=== PATIENT | male | born 1985 | race Caucasian/White ===

== ENCOUNTER 2019-12-07 17:07 | Emergency (ER) | payer OTHER, SELFPAY ==
--- NOTE | 2019-12-07 17:15 | ED.GENADULT ---
HPI - General Adult General Chief complaint: Wound/Laceration Stated complaint: tick on side Time Seen by Provider: 12/07/19 17:16 Source: patient and RN notes reviewed Limitations: no limitations History of Present Illness HPI narrative: This is a 34 years old male presents to the office for an evaluation for tick bite. He noticed it prior to arrival after he showered. He must have gotten it last night or early this morning. TD is up to date. Related Data Allergies Allergy/AdvReac Type Severity Reaction Status Date / Time No Known Allergies Allergy Unverified 01/04/18 10:16 Review of Systems Review of Systems: Narrative: CONSTITUTIONAL: Denies feeling ill SKIN: Reports tick bite to left side of his chest near his breast. MUSCULOSKELETAL: Denies joints pain NEUROLOGIC: Denies lightheaded PMFSH Social History Social History Smoking status: Never smoker Alcohol intake: current Comments At time of signature, I agree with nursing past medical, surgical, social and family history. There is no relevant family history pertinent to the presenting complaint. Exam Narrative: Exam Narrative: GENERAL: This is a well-nourished, well-developed patient, in no apparent distress. SKIN: left mid axillary side of chest noted adult size engorged tick; I cleaned the affect area with betadine swap, then I used splinter and alligator forcept along with 18g needle to remove it. I completed removed the tick, dressed the wound with neosporin and bandage. wound care instruction. NEURO: awake, alert, and oriented to person, place and time. There were no obvious focal neurologic abnormalities. Steady gait [place] Coma Scale Eye Opening: Spontaneous 4 [place]bi Coma Scale Motor: Obeys Commands 6 [place] Coma Scale Verbal: Oriented 5 Course Vital Signs Vital signs: Vital Signs Temperature 97.2 F L 12/07/19 17:18 Pulse Rate 64 12/07/19 17:18 Respiratory Rate 16 12/07/19 17:18 Blood Pressure 152/81 H 12/07/19 17:18 Pulse Oximetry 100 12/07/19 17:18 Temperature 97.2 F L 12/07/19 17:18 Pulse Rate 64 12/07/19 17:18 Respiratory Rate 16 12/07/19 17:18 Blood Pressure 152/81 H 12/07/19 17:18 Pulse Oximetry 100 12/07/19 17:18 Medical Decision Making MDM Narrative Medical decision making narrative: Patient is Urgent/Emergent. BP elevated due to current condition w/o HTN in PMH (Measure Met). Discharge instructions reviewed with patient, as well as provided in writing per nursing staff. The instructions also include specific and strict return/GO TO THE ER as well as f/u information. All questions have been answered, and the patient deny any further questions with discharge and discharge plan. Differential Diagnosis Differential Diagnosis: tick removal, wound care Vital Signs Vital Signs: Vital Signs Temperature 97.2 F L 12/07/19 17:18 Pulse Rate 64 12/07/19 17:18 Respiratory Rate 16 12/07/19 17:18 Blood Pressure 152/81 H 12/07/19 17:18 Pulse Oximetry 100 12/07/19 17:18 Temperature 97.2 F L 12/07/19 17:18 Pulse Rate 64 12/07/19 17:18 Respiratory Rate 16 12/07/19 17:18 Blood Pressure 152/81 H 12/07/19 17:18 Pulse Oximetry 100 12/07/19 17:18 Critical Care Time Critical Care Time Critical Care Time: No Discharge Plan Discharge Clinical Impression: Tick bite Qualifiers: Encounter type: initial encounter Qualified Code(s): W57.XXXA - Bitten or stung by nonvenomous insect and other nonvenomous arthropods, initial encounter Patient Disposition: Home, Self-Care Condition: Stable Instructions: Tick Bite (ED) Additional Instructions: Keep your affected area clean and dry, watch for red target sign if you see the red target sign; called your doctor immediately. Prescriptions: New doxycycline hyclate 100 mg tablet 200 mg PO ONCE Qty: 2 RF: 0 Follow-up/Referrals: Jody,Carroll Garcia,
[2019-12-07 17:18] VITALS: BP 152/81; PULSE 64; RESP 16; TEMP 36.2; O2SAT 100
== END 2019-12-07 17:47 | disposition home or self-care (01) ==
PROVIDERS: Emergency Provider Nurse Practitioner; PCP Family Medicine Sports Medicine
DX: S20.362A Insect bite (nonvenomous) of left front wall of thorax, initial encounter (principal); W57.XXXA Bitten or stung by nonvenomous insect and other nonvenomous arthropods, initial encounter
CPT/HCPCS: 99213; G0463

== ENCOUNTER 2021-08-23 15:31 | Outpatient (CLI) | payer OTHER, SELFPAY ==
--- NOTE | ~2021-08-23 | MR_ITS ---
EXAMINATION: MR foot RT wo con DATE: 08/23/2021 16:37 INDICATION: Benign neoplasm of bone and articular cartilage. Right foot and ankle pain. TECHNIQUE: Magnetic resonance imaging (MRI) of the right foot was performed without intravenous contr ast. Sequences included sagittal T1-weighted FSE and STIR FSE, long-axis PD-weighted FS FSE and PD-we ighted FSE, and short-axis PD-weighted FS FSE and T1-weighted FSE. COMPARISON: Right ankle MRI 03/22/2016, radiographs 07/27/2016, 03/16/2016 FINDINGS: Bone alignment is normal. No fracture. There is a 4 mm osteochondral lesion of lateral daniel r dome. There are tiny osteophytes of the ankle joint, subtalar joint, and some of the midfoot joints . The medial and anterior ankle tendons are normal. There is mild peroneus longus tendinopathy with l ongitudinal split tear. There is a longitudinal split tear of peroneus brevis tendon. There is Achill es tendinopathy. There are changes of Achilles tendon repair with suture anchor in calcaneus. There a re changes of prior sprain of anterior talofibular ligament characterized by increased signal intensi ty in surface irregularity. There are changes of partial tear of calcaneofibular ligament. Posterior talofibular ligament is intact. There are changes of prior sprain of anterior tibiofibular ligament c haracterized increased signal intensity. Posterior tibiofibular ligament is intact. There are changes of prior sprains of superficial and deep components of the deltoid ligament characterized by thicken ing. Central band of plantar fascia demonstrates thickening and increased signal intensity away from the proximal attachment, consistent with fibromatosis. IMPRESSION: 1. 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 2. Changes of Achilles tendon repair. 3. Changes of medial and lateral ankle sprains. 4. Longitudinal split tears of peroneus longus and peroneus brevis tendons. 5. Plantar fibromatosis. Reviewed, dictated and finalized at location A. [place] [employer]
== END 2021-08-23 15:32 | disposition home or self-care (01) ==
PROVIDERS: PCP Family Medicine Sports Medicine; Visit Provider Podiatrist Foot & Ankle Surgery
DX: D16.9 Benign neoplasm of bone and articular cartilage, unspecified (principal); M19.071 Primary osteoarthritis, right ankle and foot; Z98.890 Other specified postprocedural states; S93.491A Sprain of other ligament of right ankle, initial encounter; S96.811A Strain of other specified muscles and tendons at ankle and foot level, right foot, initial encounter; M72.2 Plantar fascial fibromatosis
CPT/HCPCS: 73718

== ENCOUNTER 2022-07-16 09:17 | Emergency (ER) | payer OTHER, SELFPAY ==
[2022-07-16 09:34] VITALS: BP 149/92; PULSE 67; RESP 16; TEMP 36.4; O2SAT 100
--- NOTE | 2022-07-16 09:51 | ED.URI ---
HPI - URI/Sore Throat General Chief Complaint: Upper Respiratory Infection Stated Complaint: SORE THROAT Time Seen by Provider: 07/16/22 09:51 Source: patient Mode of arrival: ambulatory Limitations: no limitations History of Present Illness HPI Narrative: Kobe is a 37-year-old male patient presenting to the clinic today with complaints of sore throat x2 days. He does report that he thinks he had flu approximately 1-2 weeks ago. States his symptoms did improve however he developed to sore throat 2 days ago and has had exposure to a co-worker who tested positive for strep MD elicited complaint: sore throat and nasal congestion Related Data Allergies Allergy/AdvReac Type Severity Reaction Status Date / Time No Known Allergies Allergy Verified 07/16/22 09:34 Review of Systems Review of Systems: Pertinent positives per HPI. Patient denies any fever, chills, rash, headache, visual changes, dizziness, shortness of breath, chest pain, palpitations, nausea, vomiting, diarrhea, constipation, abdominal pain, or any urinary issues. [facility] Social History Social History Smoking status: Never smoker Alcohol intake: current Comments At the time of my signature, I reviewed and agree with the nursing past medical, surgical, social, and family history. There is no relevant family history pertinent to the patient complaint. Exam Narrative: General: Well-developed, well nourished, in no apparent distress Head: Normocephalic, atraumatic Eyes: Pupils equally round and reactive to light bilaterally, EOM intact, sclera and conjunctive clear, no discharge, lids normal Ears: TMs intact and clear, ear canals clear, no drainage, grossly hearing normal. Nose: Nares patent, clear nasal discharge, no inflammation, no sinus tenderness. Mouth: Oral pharynx without lesions or masses, good dentition, MMM. Postnasal drip oropharynx red Neck: Supple, trachea midline, no enlargement of anterior or posterior cervical nodes, no thyroid masses or goiter palpable. Cardio: Regular rate and rhythm, s1 and s2 normal, no murmur appreciated. Resp: Clear to auscultation bilaterally, no rhonchi, rales, wheezing or rubs Course Course Emergency Course: Portions of this record may have been created with voice recognition software. Level of Care: Express Care Visit Vital Signs Vital signs: Vital Signs Temperature 36.4 C L 07/16/22 09:34 Pulse Rate 67 07/16/22 09:34 Respiratory Rate 16 07/16/22 09:34 Blood Pressure 149/92 H 07/16/22 09:34 Pulse Oximetry 100 07/16/22 09:34 Temperature 36.4 C L 07/16/22 09:34 Pulse Rate 67 07/16/22 09:34 Respiratory Rate 16 07/16/22 09:34 Blood Pressure 149/92 H 07/16/22 09:34 Pulse Oximetry 100 07/16/22 09:34 Vital signs reviewed MDM - URI/Sore Throat MDM Narrative Medical decision making narrative: At the time of visit patient is resting comfortably on the exam table. Strep screen was obtained and was negative in the clinic today. I suspect patient has URI pharyngitis. Prescription for prednisone was sent to pharmacy. Supportive measures were discussed with the patient he voiced understanding discharge instructions and agrees to treatment plan. Differential Diagnosis Differential diagnosis: Likely upper respiratory infection, otitis media, sinusitis, viral infection, bronchitis, influenza, pharyngitis and other (COVID) Lab Data Labs: Strep Screen Presumptive Negative *(Reference Range: Negative)* Discharge Plan Discharge Clinical Impression: Upper respiratory infection Qualifiers: URI type: unspecified URI Qualified Code(s): J06.9 - Acute upper respiratory infection, unspecified Pharyngitis Qualifiers: Pharyngitis/tonsillitis etiology: unspecified etiology Qualified Code(s): J02.9 - Acute pharyngitis, unspecified Patient Disposition: Home, Se
== END 2022-07-16 10:03 | disposition home or self-care (01) ==
PROVIDERS: Emergency Provider Nurse Practitioner Family; PCP Nurse Practitioner
DX: J06.9 Acute upper respiratory infection, unspecified (principal); J02.9 Acute pharyngitis, unspecified
CPT/HCPCS: 87081; 87880; 99213; G0463

== ENCOUNTER 2022-09-03 11:50 | Emergency (ER) | payer OTHER, SELFPAY ==
[2022-09-03 12:02] VITALS: BP 137/89; PULSE 53; RESP 18; TEMP 36.4; O2SAT 100
--- NOTE | 2022-09-03 12:02 | ED.BACK ---
HPI - Back Pain/Injury General Chief Complaint: Back Pain/Injury Stated Complaint: back pain Time Seen by Provider: 09/03/22 12:10 Source: patient Mode of arrival: ambulatory Limitations: no limitations History of Present Illness HPI Narrative: Kobe is a 37-year-old male patient presenting to clinic today with complaints of left posterior hip/SI joint pain with some radiation of pain in to his left leg. He reports that he did some lifting yesterday in yd work and feels as though he injured his SI joint. At a states he has had this problem in the past but nothing as severe. He denies any saddle anesthesia or loss of bowel or bladder. Rates his pain currently a 4/10. States the pain is a dull ache. Related Data Allergies Allergy/AdvReac Type Severity Reaction Status Date / Time No Known Allergies Allergy Verified 09/03/22 12:03 [facility] Social History Social History Smoking status: Never smoker Alcohol intake: current Comments At the time of my signature, I reviewed and agree with the nursing past medical, surgical, social, and family history. There is no relevant family history pertinent to the patient complaint. Exam Narrative: General: Well-developed, well nourished, in no apparent distress Head: Normocephalic, atraumatic. Cardio: Regular rate and rhythm, s1 and s2 normal, no murmur appreciated. Resp: Clear to auscultation bilaterally, no rhonchi, rales, wheezing or rubs. Musculoskeletal: No deformity, non-tender to palpation, grossly normal range of motion, muscle strength strong and equal, peripheral pulse strong, no edema, no cyanosis, normal gait and station Course Course Emergency Course: Portions of this record may have been created with voice recognition software. Level of Care: Express Care Visit Vital Signs Vital signs: Vital signs reviewed MDM - Back Pain/Injury MDM Narrative Medical decision making narrative: At the time of visit patient is resting comfortably on the exam table. I suspect patient has SI joint dysfunction with sciatica. Toradol 60 mg IM given in the clinic for pain and prescription for prednisone Flexeril sent to the pharmacy and supportive measures were discussed with the patient and he voiced understanding discharge instructions and agrees to treatment plan. Sedation precautions were reviewed with the patient Differential Diagnosis Differential diagnosis: Likely lumbar radiculopathy, sciatica, strain of lumbar region and other (SI joint dysfunction) Discharge Plan Discharge Clinical Impression: Sacroiliac joint dysfunction of left side, Sciatica of left side Patient Disposition: Home, Self-Care Condition: Stable Instructions: Antibiotic Form, Sciatica (ED), Hip Pain (ED) Additional Instructions: Toradol 60 mg IM given in the clinic today Take any prescription medication only as prescribed- prednisone and Flexeril Be mindful of sedation precautions given to you if taking a muscle relaxer. May use heat or ice to the affected area Consider massage or chiropractor adjustment if this was discussed with provider May use blue emu, lidocaine patches, or asper cream to affected area- do not apply heat or ice directly over cream- can cause burn. Complete appropriate sciatica stretching exercises. Follow up with your PCP in 3-5 days if symptom persist. Prescriptions: New cyclobenzaprine 10 mg tablet 10 mg PO Q8H PRN (Reason: muscle spasm) 7 Days Qty: 21 0RF prednisone 20 mg tablet 40 mg PO DAILY 5 Days Qty: 10 0RF Follow-up/Referrals: UNKNOWN,DOCTOR [Primary Care Provider] - Time of Disposition: 12:17 Quality NIHSS Nursing Documentation ED NIHSS nursing documentation: reviewed/agree
[2022-09-03 12:04] VITALS: BP 137/89; PULSE 53; RESP 18; TEMP 36.4; O2SAT 100
[2022-09-03] MEDS: KETOROLAC (*BKC) 60 MG/2 ML VIAL IM (12:21)
[2022-09-03 12:36] VITALS: BP 136/87; PULSE 97; RESP 18; TEMP 36.8; O2SAT 98
== END 2022-09-03 12:36 | disposition home or self-care (01) ==
PROVIDERS: Emergency Provider Nurse Practitioner Family
DX: M53.3 Sacrococcygeal disorders, not elsewhere classified (principal); M54.32 Sciatica, left side
CPT/HCPCS: 96372; 99213; G0463; J1885

== ENCOUNTER 2023-05-02 01:19 | Day surgery (SDC) | payer OTHER, SELFPAY ==
[2023-04-25 14:10] VITALS: BMI 27.7
--- NOTE | 2023-04-25 14:14 | PC.NURSE ---
Report to the Outpatient Waiting Room, entrance under the green pavilion located off [facility], at time 1130 on date 05/02/23. Planned Procedure Time: 1330. Time changes happen often and if your time is changed the preop area will call you the afternoon before. - You and your visitor will be asked to self-screen and do not enter if you have any COVID symptoms. - A mask is optional within the hospital at this time. Patients may have clear liquids (water, carbonated beverages, clear teas, apple juice) until 3 hours prior to surgery with a maximum of 20 ounces. - No food from midnight until time of surgery Take the following medications with a SIP of water the morning of surgery: N/A DO NOT STOP ANY OF YOUR OTHER PRESCRIPTION MEDICATIONS PRIOR TO SURGERY ?EXCEPT THE FOLLOWING Medications to discontinue per physician: N/A Date to take last dose: N/A Please no make-up, nail mongolian, hairspray, perfume, deodorant, or body powder the day of surgery. No jewelry (including any body piercings) or valuables the day of surgery, leave them at home. Please take a shower or bath the night before, or the morning of, surgery with an antibacterial soap. Wear comfortable, loose fitting clothing. - Jewelry must be removed prior to entering the operating room. Rings and piercings that are not removed may be cut off. - The hospital will not accept responsibility for valuables. - Please leave all valuables, including medications, at home the day of surgery. If you are going home after surgery, a licensed driver/merchandiser must drive you home. - NO public transportation without another adult if you receive anesthesia. - We recommend that an adult stay with you for 24 hours following discharge. - We also recommend that you do not drive, make important decision, drink alcoholic beverages, or take any drugs that were not prescribed by your health care provider for at least 24 hours after your discharge time. Follow any additional instructions given to you from your surgeon. If you or anyone in your household have experienced Covid symptoms in the past week, please notify your surgeon or the nurse liaison at the phone number below for possible testing. Telephone instructions given to PT - RAMONA BUSH and asked if any additional questions and then verbalized understanding. Patient advised to call surgeon office or pre surgery nurse liaison [phone] if any additional questions.
[2023-05-02] VITALS (10 sets, daily range): BP systolic 130–150; BP diastolic 69–91; PULSE 48–71; RESP 11–16; TEMP 36.4–36.6; O2SAT 94–100
--- NOTE | 2023-05-02 09:09 | WPDHPUPDATE1 ---
History and Physical Update Update Date/Time: 05/02/23 09:09 History and Physical has been reviewed, including an updated exam of the patient. There are NO changes in the patient's condition. Risks, benefits, and alternatives have been discussed and questions answered. Patient agrees to proceed with procedure.
[2023-05-02] MEDS: KETOROLAC 15 MG/ML VIAL (*BKC) IV PUSH (12:15)
[2023-05-02] MEDS: ACETAMINOPHEN 500 MG TABLET 1000 MG PO (12:15)
[2023-05-02] MEDS: LACTATED RINGERS 1,000 ML 30 ML IV CONT ×2 (12:31→14:25)
--- NOTE | 2023-05-02 12:43 | P.PNAN_ITS ---
Anes - Initial Pre Proc Eval Procedure: Operation Date: 05/02/23 13:30 Proposed Procedures p Open Umbilical Hernia Repair with Mesh - Delma Villatoro MD Date/Time: 05/02/23 12:43 Surgeon: Delma Villatoro MD Pre Op Diagnosis: Umbilical Hernia Patient Data Age: 37 Gender: M Height: 1.85 m Weight: 93.7 kg Last Vital Signs Temp 98 F 05/02/23 12:26 Pulse 57 L 05/02/23 12:26 Resp 14 05/02/23 12:26 BP 150/70 H 05/02/23 12:26 Pulse Ox 99 05/02/23 12:26 O2 Del Method Room Air 05/02/23 12:26 Allergies Allergy/AdvReac Type Severity Reaction Status Date / Time No Known Allergies Allergy Verified 05/02/23 12:33 Home Medications Medication Instructions Recorded Confirmed Type No Home Medications 04/25/23 04/25/23 History Patient hx anesthesia problems: none Family hx anesthesia problems: none Results Review: All pre-operative results and documents have been reviewed as part of the pre- operative evaluation. [facility] Surgical History Surgical History (Updated 04/25/23 @ 09:11 by Lynn Yarbrough MA) Hx of Achilles tendon repair Family History Family History (Updated 04/25/23 @ 09:12 by Lynn Yarbrough MA) Other Heart disease Social History Social History Smoking status: Never smoker Alcohol intake: current Alcohol use details: RARE - 2/MONTH Substance use: never Substance use type: does not use Living arrangements: alone Spiritual care concerns: No Anes - Eval Final PreProcedure Day of Procedure 05/02/23 12:43 Patient weight: normal Heart: regular rate and rhythm Lungs: clear to auscultation Airway: Mallampati scale class II Neurological: alert and oriented Last oral intake: >/= 8 hours ASA classification: II Emergent: no Anesthetic plan: proceed Anesthesia type and monitoring: general LMA and standard monitoring Results Review: All pre-operative results and documents have been reviewed as part of the pre- operative evaluation. Informed Consent: The patient's anesthetic plan and its attendant risks and benefits were dis cussed with the patient/family/POA. Questions were solicited and answers provided to the satisfaction of the patient/family/POA.
[2023-05-02] MEDS: ceFAZolin 2 GM/D5W 50 ML 2 GM/50 ML BAG IVPB (13:22)
[2023-05-02] MEDS: BUPIVACAINE/EPINEPHRINE 0.5% 50 ML VIAL 30 ML INFILTRATE (13:22)
--- NOTE | 2023-05-02 14:05 | W.PM.PROC2 ---
Procedure Note - Detailed Date of Procedure 05/02/23 Pre-op Diagnosis Umbilical Hernia measuring total of 3 cm Post-op Diagnosis Same Procedure Performed repair of incarcerated umbilical hernia measuring 3 cm with mesh Surgeon Delma Villatoro MD Anesthesia General Indications 37 y/o M c incarcerated umbilical hernia Findings incarcerated umbilical hernia c preperitoneal fat, 2 separate defects measuring approximately 1 cm each with a 1 cm bridge in between making total defect approximately 3 cm Description of Procedure The patient was taken to the operating room placed in the supine position. After adequate induction of general anesthesia, the patient was prepped and draped in the normal sterile fashion. A time-out was then done to verify the patient's identity, as well as the procedure being performed. I began by localizing the area around the umbilicus. I then made a curvilinear incision in the infraumbilical fold. This was taken down to level fascia. I then was able to bluntly dissect around the umbilicus. I then carefully dissected the umbilicus off the underlying fascia. I then noted two small defects with incarcerated preperitoneal fat. I was able to mobilize the incarcerated tissue and reduce it back into the abdominal cavity. This left 2 separate 1 cm defects with a 1 cm bridge in between. Given this finding, I opened the bridge in between to make it 1 defect of approximately 3 cm. I then placed a 4.6 cm round piece of ventralex mesh in the underlay position. This was noted to have good, wide local coverage of the defect. I then closed this defect primarily with interrupted 0 Ethibond suture over the underlay mesh repair. I then reapproximated the umbilicus to the fascia with a 3 0 Vicryl U-stitch. The subcutaneous tissue was then closed with 3 0 Vicryl suture. The skin was closed with 4 0 Monocryl subcuticular suture. Dermabond was then placed on the wound. The patient tolerated the procedure well was extubated in the operating room postop. He will be transferred to the recovery room in stable condition. Implants 4.6 cm ventralex mesh in underlay position Estimated Blood Loss 5 Drains No Packing No Pathology None sent Complications No immediate complications Condition Stable Disposition PACU [facility] Billing Surgery - Charge Forward: Surgery Billing
[2023-05-02] MEDS: fentaNYL CITRATE INJ (*CRX) 100 MCG/2 ML VIAL 25 MCG IV PUSH ×4 (14:35→15:10)
[2023-05-02] MEDS: oxyCODONE HCL (*CRX) 5 MG TAB IR PO (15:46)
== END 2023-05-02 16:35 | disposition home or self-care (01) ==
PROVIDERS: PCP Nurse Practitioner; Visit Provider Surgery
PROC: (CPT 49594; principal; 2023-05-02 13:30)
DX: K42.0 Umbilical hernia with obstruction, without gangrene (principal)
CPT/HCPCS: 49594; A9270; C1781; J0690; J1100; J1885; J2250; J2405; J2704; J3010; J7120

== ENCOUNTER 2024-08-21 18:11 | Emergency (ER) | payer OTHER, SELFPAY ==
--- NOTE | 2024-08-21 18:12 | ED_ITS ---
HPI - Extremity Injury (Upper) General Chief Complaint: Extremity Injury, Upper Stated Complaint: LT Arm Pain / anxiety Time Seen by Provider: 08/21/24 18:11 Source: patient Mode of arrival: ambulatory Limitations: no limitations History of Present Illness HPI narrative: Patient is a 39-year-old male that presents with muscular chest pain and anxiety. 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 Once he moved back here from [place] he saw a different integrated logistics support manager and was told that was incorrect. Patient has not had cardiac issues since. Reports chest pain is a 1/10 and is intermittent and present mostly on palpation. Patient states Sunday night he started having a sore throat, nasal congestion and headache. Sunday he had a fever. All symptoms have resolved since Sunday. Patient also reports a few weeks ago he irritated left elbow tendon working out and took 2 weeks off of chest and arm days. Reports this past week he went back to doing chest and arms. Now reports reproducible left mid sternal chest wall pain along with pain in left shoulder and left elbow. Patient reports left elbow tendon is very tender on palpation like it was 2 weeks ago. Patient has not had any shortness of breath or radiating pain. Patient still able move shoulder and elbow completely. Patient does not have any medication for anxiety and does not see a psychiatrist. Related Data Allergies Allergy/AdvReac Type Severity Reaction Status Date / Time No Known Allergies Allergy Verified 08/21/24 18:19 Review of Systems Review of Systems: All systems reviewed & are unremarkable except as noted in HPI and below Constitutional: Constitutional: Denies body ache(s), Denies chills, Denies fatigue, Denies fever(s), Denies headache(s), Denies malaise and Denies weakness Eyes: Eyes: Denies blurry vision, Denies irritation and Denies loss of vision ENT: Denies otalgia, Denies headache(s), Denies nasal discharge, Denies sinus pain and Denies sore throat Cardiovascular: Cardiovascular: Reports chest pain, Denies irregular heart rhythm and Denies dyspnea Respiratory: Respiratory: Denies dyspnea Gastrointestinal: Gastrointestinal: Denies abdominal pain, Denies melena, Denies hematochezia, Denies diarrhea, Denies nausea and Denies vomiting Musculoskeletal: Musculoskeletal: Denies back pain, Denies myalgias and Reports arthralgias Integumentary/Breasts: Skin/Breast: Denies pruritus and Denies rash Neurologic: Denies headache(s), Denies loss of vision and Denies weakness Psychiatric: Psychiatric: Reports no additional psychiatric complaints Endocrine: Endocrine: Denies fatigue PMFSH Surgical History Surgical History History of hernia repair repair of incarcerated umbilical hernia measuring 3 cm with mesh on 05/02/23 PDC Hx of Achilles tendon repair Family History Family History Other Heart disease Social History Social History Smoking status: Never smoker Alcohol intake: current Alcohol use details: RARE - 2/MONTH Substance use: never Substance use type: does not use Living arrangements: alone Spiritual care concerns: No Comments At time of signature, agree with nursing past medical, surgical, social and family history. There is no relevant family history pertinent to the presenting complaint. Exam Const: General: cooperative, healthy appearing, comfortable, no acute distress and well nourished Nutritional Appearance: well nourished Orientation/consciousness: patient oriented x3 Limitations: no limitations HENMT: Head: normal to inspection, normocephalic and atraumatic Ears: hearing grossly normal bilaterally and external ears normal Face/Nose/Sinus: Normal external nose present, normal facial exam and face symmetric Face and sinus: normal facial exam and face symmetric Mouth: Yes lip normal Eyes: General: appearance normal, both eyes and all related structures Alignment and Position: alignment normal and position normal Periorbital: periorbital findings normal Eyelids: eyelids normal Pupils: Equal, round and reactive pupils present EOM: EOMs intact bilaterally Neck: Neck: normal visual inspection, full ROM and supple Chest: Chest palpation & inspection: normal inspection of the chest Resp: Effort & Inspection: normal respiratory effort and able to speak in complete sentences Auscultation: clear to auscultation bilaterally, no crackles, no rales, no rhonchi and no wheezes Cardio: Rate: bradycardic Rhythm: regular rhythm Heart sounds: S1 normal heart sound present and S2 normal heart sound present GI: Inspection: normal to inspection Skin: General skin exam: normal color and no rashes or lesions noted Neuro: General: patient oriented x3 and moves all extremities Cranial nerves: Yes Equal, round and reactive pupils present Cognition (Neuro): normal cognition Speech: normal speech Gait exam (Neuro): Normal gait present Motor exam (neuro): Normal motor muscle tone present throughout and Motor abnormalities not present Sensory Exam: normal sensation Extrem: General: normal to inspection, full ROM and no edema Left upper extremity: shoulder/upper arm inspection abnormal, axillary nerve sensory function normal and normal ROM; no tenderness and no swelling and elbow/forearm normal to inspection, tenderness of the medial epicondyle, normal ROM and distal pulses intact; no swelling Psych: Appearance: grossly normal and well kempt Mental Status: mental status grossly normal Speech and movement: Normal speech and movement present Affect: Anxious affect present Attitude: cooperative Thought process: Normal thought process present Thought content: Yes Normal thought content present Insight: Good insight present (Psych) Judgement: Good judgement present (Psych) Course Course Emergency Course: Patient is aware of diagnosis, understands and agrees to treatment plan. Anticipatory guidance given. Patient agrees to follow-up as directed and is aware of reasons to seek care at the emergency department. Portions of this record may have been created with voice recognition software Level of Care: Express Care Visit Vital Signs Vital signs: Reviewed MDM - Extremity Injury (Upper) MDM Narrative Medical decision making narrative: Discussed EKG findings with patient. Given Cardiology follow-up. Discussed transfer to emergency department for further workup and evaluation, patient states he does not want to go at this time. Patient states he will follow-up with PCP and Cardiology. Patient also states if he goes home and his anxiety is overwhelming or he has any changes in chest pain he will go straight to the ER. Patient declined Atarax for anxiety. Patient had not taken any tylenol or ibuprofen for pain. States last night he was able to relax and reduce anxiety which also reduced the pain, and was able to sleep. Does report the more he thinks about the pain and if it has to do with his heart the more the pain is present. Pt well hydrated appearing, in no respiratory distress, hemodynamically stable. Recommend supportive care. The patient is stable at time of discharge the clinical impression was discussed and the patient was given the opportunity to ask questions, which were addressed as completely as possible given the information available at present. Anticipatory guidance and return to care precautions were discussed and the importance of primary care follow-up was stressed and encouraged. The patient voiced understanding of the plan, indications to return, and the need for follow-up. Exam findings show no acute concerns or changes Patient is appropriate for outpatient treatment and follow-up. Differential Diagnosis Differential diagnosis: Likely other (Muscle strain, tendinitis. Less likely mi. Anxiety, panic attack) Medical Records Attestation: I reviewed the patient's medical records. ECG Data EKG #1: ECG completion date: 08/21/24 ECG completion time: 18:34 Prior ECG tracings: not available for review Interpretation: EKG: VR[55], ND int[169], QRS dur:[151], QT/QTc: [459/447], PRT axes: [58 72 36], No ST elevation or depression. J-point changes in lead 3 EKG Interpretation: bradycardia, no ST changes and RBBB Discharge Plan Discharge Clinical Impression: Left elbow tendinitis, Anxiety Chest wall muscle strain Qualifiers: Encounter type: initial encounter Qualified Code(s): S29.011A - Strain of muscle and tendon of front wall of thorax, initial encounter Patient Disposition: Home, Self-Care Condition: Stable Instructions: Muscle Strain (ED) Additional Instructions: Avoid activities that cause pain until the pain subsides. Ice to the area 20-30 minutes 4-6 times a day For pain, you may take: Tylenol 650-1000mg by mouth every 4-6 hours. Do not exceed 4000mg in 24 hours. Advil (Ibuprofen) 600 mg by mouth every 6 hours. Do not exceed 2400mg in 24 hours. 8 AM: Tylenol 11 AM: Ibuprofen 2 PM: Tylenol 5 PM: Ibuprofen 8 PM: Tylenol 11 PM: Ibuprofen 2 AM: Tylenol 5 AM: Ibuprofen Use muscle relaxers as needed. They may make you sleepy so do not drive while taking them. Follow up with your primary care provider if the condition is not improving within 1 week. If the condition worsens with numbness, tingling, decrease sensation with weakness seek treatment in the emergency room immediately. Your blood pressure was elevated above 120/80 today at Urgent Care. This puts you above the threshold for follow up visit with a primary care provider. High blood pressure does not usually cause any symptoms, however it may lead to kidney failure, stroke, heart disease just to name a few if untreated . Many people are anxious when seeing a provider or nurse. As a result, you are not diagnosed with hypertension at this time unless your blood pressure is persistently high at two office visits at least one week apart. Some things that can help lower blood pressure are lifestyle modifications, such as light exercise, decreased salt in diet, and weight loss. It is important to follow up with a PCP about this within 1 week. Patient Language: Monegasque Prescriptions: New baclofen 10 mg tablet 10 mg PO TID 5 Days Qty: 15 0RF Follow-up/Referrals: Laya Jain DO [Physician] - 3 Days (Establish care. New right bundle branch block) UNKNOWN,DOCTOR [Non-Staff] - Ankur,SHIRA Lopez [Primary Care Provider] - 3 Days Time of Disposition: 18:59
--- OUTSIDE RECORDS SUMMARY | 2024-08-21 18:13 | XMS_ITS | Encounter Summary ---
Author Organization [place] Address [facility] [place] [address] Care Team Providers Care Early Childhood Worker Name Role Phone Sarah Pascual NP Primary Care Provider [phone] Encounter Details Date Type Department Care Team (Late st Contact Info) Description 09/03/2023 Cable-Sense Message Enc [facility] Family Medicine [facility] [address] [address] [place], [facility] Provider Message from Sarah Social History Tobacco Use Types Packs/Day Years Used Date Smoking Tobacco: Never Smokeless Tobacco: Never Alcohol Use Standard Drinks/Week Comments Yes 0 (1 standard drink = 0.6 oz pure alcohol) I have drinks about twice a month AUDIT-C Answer Date Recorded Q1: How often do you have a drink containing alc ohol? Monthly or less 08/20/2020 Q2: How many drinks containi ng alcohol do you have on a typical day when you are drinking? 1 or 2 08/20/2020 Frequency of Binge Drinking Not on file 11/2020 PHQ-2 Answer Date Recorded Patient Health Questionnaire-2 Score 0 04/18/2023 Sex and Gender Information Value Date Recorded Sex Assigned at Not on file Legal Sex Male 2:37 PM CDT Gender Identity Not on file Sexual Orientation Not on file documented as of this encounter Plan of Treatment Not on file documented as of this encounter Visit Diagnoses Not on filedocumented in this encounter Additional Health Concerns Assessment Noted Time PHQ-9 Depression Total Score: 0 04/18/20 23 1:50 PM CDT documented as of this encounter Care Teams Early Childhood Worker Relationship Specialty Start Date End Date Sarah Pasucal NP [address] [place] [address] PCP - General NURSE PRACTITIONER 01/23/22 documented as of this encounter
--- OUTSIDE RECORDS SUMMARY | 2024-08-21 18:13 | XMS_ITS | Clinical Summary ---
Author Organization [facility] Address [address] [place] [address] Care Team Providers Care Family Preservation Worker Name Role Phone Sarah Pascual NP Primary Care Provider [phone] [phone] Allergies No known active allergies Medications No known medications Active Problems Problem Noted Date Diagnosed Date Perianal hematoma 05/23/2022 GERD (gastroesophageal reflux disease) 8 Resolved Problems Problem Noted Date Diagnosed Date Resolved Date Anxiety attack 03/15/2015 01/24/2022 Immunizations Name Administration Dates Next Due Fluzone 6 Months+ Quad (0.5 mL Prefilled Syringe) 05/23/2022 Influenza (Generic) 06/16/2019 Influenza Adult (Generic) 05/13/2018,01/2017,05/22/2017, 016 Family History Medical History Relation Comments None Father No Known Problems Mother Relation Status Comments Father Alive Mother Alive Social History Tobacco Use Types Packs/Day Years [...] on file Sexual Orientation Not on file Last Filed Vital Signs Vital Sign Reading Time Taken Comments Blood Pressure 120/80 04/18/2023 2:04 PM CDT Pulse 57 04/18/2023 1:46 PM CDT Temperature 36.4 C (97.6 F) 04/18/2023 1:46 PM CDT Respiratory Rate 18 04/18/2023 1:46 PM CDT Oxygen Saturation 99% 04/18/2023 1:46 PM CDT Inhaled Oxygen Concentration - - Weight 97.7 kg (215 lb 6.4 oz) 04/18/2023 1:46 P M CDT Height 185.4 cm (6' 1 ) 04/18/2023 1:46 PM CDT Body Mass Index 28.42 04/18/2023 1:46 PM CDT Plan of Treatment Health Maintenance Due Date Last Done Comments DTaP, Tdap and Td Vaccines (1 - Tdap) 2005 Hepatitis B Vaccines (1 of 3 - 19+ 3-dose series) 2005 Annual Physical 01/24/2023 01/24/2022 COVID-19 Vaccine ( season) 2024 09/21/2020, 08/24/2020 Influenza Adult (#1) 2024 05/23/2022, 06/16/2019, 05/13/2018, Additional history exists PHQ-2 (Physician [place] [facility] [place]) 04/18/2024 04/18/2023 PHQ-2 (Physician [place] [facility] [place]) 07/16/2024 04/18/2023 Hepatitis C Completed 05/07/2023, 08/30/2020 HPV Vaccines Aged Out No longer eligi ble based on patient's age to complete this topic Meningococcal B Vaccine Aged Out No l onger eligible based on patient's age to complete this topic Meningococcal Vaccine Aged Out No manuela [place] eligible based on patient's age to complete this topic Pneumococcal Vaccine: Pediatrics (0 to 5 Years) and At-Risk Patients (6 to 64 Years) Aged Out No longer eligible based on patient's age to complete this topic RSV Immunizations Under 20 Months Aged Out No longer eligible based on patient's age to complete this topic Procedures Procedure Name Priority Date/Time Associated Diagnosis Comments HEPATITIS PANEL,ACUTE Routine 05/07/2023 2:51 PM CDT Screen for STD (sexually transmitted disease) from Last 3 Months or Most Recently Relevant to Health Maintenance Results * HEPATITIS PANEL,ACUTE (05/07/2023 2:51 PM CDT) HEPATITIS B SURFACE AG NON-REACT RICA NON-REACT RICA 05/07/2023 10:14 PM CDT [facility] Comment:HBsAg NOT DETECTED. HEP B CORE IGM NON-REACT RICA NON-REACT RICA 05/07/2023 10:14 PM CDT [facility] Comment: IgM ANTI HBc NOT DETECTED. DOES NOT EXCLUDE THE POSSIBILITY OF EXPOSURE TO OR INFECTION WITH HBV. NO RETEST REQUIRED. HIGH DOSES OF BIOTIN MAY INTERFERE WITH THIS TEST RESULT. CORRELATION TO CLINICAL HISTORY AND PRESENTATION RECOMMENDED. HAV IGM NON-REACT RICA NON-REACT RICA 05/07/2023 10:14 PM CDT [facility] Comment: IgM ANTI HAV NOT DETECTED. DOES NOT EXCLUDE THE POSSIBILITY OF EXPOSURE TO OR INFECTION WITH HAV. LEVELS OF IgM ANTI HAV MAY BE BELOW THE CUTOFF IN EARLY INFECTION. HEPATITIS C AB NON-REACT RICA NON-REACT RICA 05/07/2023 10:14 PM CDT [facility] Comment: ANTIBODIES TO HCV NOT DETECTED. DOES NOT EXCLUDE THE POSSIBILITY OF EXPOSURE TO HCV. 05/07/2023 2:51 PM CDT us Sarah Pascual NP LABORATORY Final Res ult [facility] [address] [place] [address], [id number] from Last 3 Months or Most Recently Relevant to Health Maintenance Insurance [facility] Advance Directives Documents on File Type Date Recorded Patient Publicity Agent Expl anation Legal Documents 06/01/2020 1:13 PM RECVD & CMPLTD ATTY REQ. FOR HB BILLS FOR [facility] FOR [facility] LAW Care Teams Family Preservation Worker Relationship Specialty Start Date End Date Sarah Pascual NP [address] [place] [address] PCP - General NURSE PRACTITIONER 01/23/22
--- OUTSIDE RECORDS SUMMARY | 2024-08-21 18:13 | XMS_ITS | Encounter Summary ---
Author Organization [facility] Address [address] [place] [address] Care Team Providers Care Weaving Supervisor Name Role Phone Broderick, Jessica HUITRONP Primary Care Provider [phone] Sarah Pascual NP Primary Care Provider [phone] Encounter Details Date Type Department Care Team (Late st Contact Info) Description 09/27/2020 [employer] Message [facility] [address] [place] [address] [facility] Results Social History Tobacco Use Types Packs/Day Years Used Date Smoking Tobacco: Never Smokeless Tobacco: Never Alcohol Use Standard Drinks/Week Comments Yes 0 (1 standard drink = 0.6 oz pur e alcohol) 1.week AUDIT-C Answer Date Recorded Q1: How often do you have a drink containing alc ohol? Monthly or less 08/20/2020 Q2: How many drinks containi ng alcohol do you have on a typical day when you are drinking? 1 or 2 08/20/2020 Frequency of Binge Drinking Not on file 11/2020 PHQ-2 Answer Date Recorded PHQ-2 Score - If the patient scores above 3, please move on to questions 3-9 0 08/20/2020 Sex and Gender Information Value Date Recorded Sex Assigned at Not on file Legal Sex Male 2:37 PM CDT Gender Identity Not on file Sexual Orientation Not on file COVID-19 Exposure Response Date Recorded In the last month, have you been in contact with someone who was confirmed or suspected to have Coronavirus / COVID-19? 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
--- OUTSIDE RECORDS SUMMARY | 2024-08-21 18:13 | XMS_ITS | Encounter Summary ---
Author Organization [facility] Address [address] [place] [address] Care Team Providers Care Tobacco Wetter Name Role Phone Broderick, Jessica HUITRONP Primary Care Provider [phone]- [phone] Sarah Pascual NP Primary Care Provider [phone] Encounter Details Date Type Department Care Team (Late st Contact Info) Description 09/20/2020 Eversight Message [facility] [address] [place] [address] [facility] Results Social History Tobacco Use Types Packs/Day [...] COVID-19? 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
[2024-08-21 18:17] VITALS: BP 160/87; PULSE 56; RESP 18; TEMP 36.1; O2SAT 100
--- NOTE | 2024-08-21 18:36 | ECG_ITS ---
Test Date: 2024-08-21 18:34:45 Measurements Intervals [place] Rate: 55 P: 58 GA: 169 QRS: 72 QRSD: 151 T: 36 QT: 459 QTc: 440 Interpretive Statements SINUS BRADYCARDIA RIGHT BUNDLE BRANCH BLOCK BASELINE ARTIFACT- I, III, AVR, AVL, AVF, V1-V3 ABNORMAL ECG No previous ECG available for comparison Electronically Signed On 08-21-2024 19:35:01 TREE SURGEON HELPER by Vj Rebolledo D.O.
== END 2024-08-21 19:04 | disposition home or self-care (01) ==
PROVIDERS: Emergency Provider Nurse Practitioner Family; PCP Nurse Practitioner
DX: M77.02 Medial epicondylitis, left elbow (principal); F41.9 Anxiety disorder, unspecified; S29.011A Strain of muscle and tendon of front wall of thorax, initial encounter; X58.XXXA Exposure to other specified factors, initial encounter
CPT/HCPCS: 93005; 99213; G0463

== ENCOUNTER 2024-12-02 14:38 | Outpatient (CLI) | payer OTHER, SELFPAY ==
--- NOTE | 2024-12-02 14:57 | ECHO_ITS ---
Patient Info Name: Kobe Rodriguez Age: 39 years : 1985 Gender: Male Ht: 73 in Wt: 215 lbs BSA: 2.26 m2 HR: 59 bpm BP: 158 / 80 mmHg Technical Quality: Good Exam Date: 12/02/2024 3:03 PM Patient Status: O Admit Date: 12/02/2024 Exam Type: CA echo doppler color flow Complete two-dimensional, color flow and Doppler transthoracic echocardiogram is performed. Apprentice Embalmer: Charlotte Mayorga Attending Provider: Jun Guardado DO Summary 1. Complete two-dimensional, color flow and Doppler transthoracic echocardiogram is performed. 2. Left ventricular chamber dimension is normal. 3. Left ventricular systolic function is normal, estimated at 65-70. 4. The left ventricular diastolic function is normal. 5. E/e' 4 is not elevated. 6. Left atrial chamber dimension is mildly enlarged. 7. There is trace tricuspid valve regurgitation. 8. No pulmonary hypertension, estimated pulmonary arterial systolic pressure is 24 mmHg. 9. There is trace pulmonic regurgitation. Left Ventricle Left ventricular chamber dimension is normal. Left ventricular systolic function is normal, estimated at 65-70. The left ventricular diastolic function is normal. E/e' 4 is not elevated. Right Ventricle Right ventricular chamber dimension is normal. Right ventricular systolic function is normal. Left Atria Left atrial chamber dimension is mildly enlarged. Right Atria Right atrial chamber dimension is normal. Aortic Valve The aortic valve is trileaflet. There is no aortic valve stenosis. There is no aortic valve regurgitation. Pulmonic Valve There is trace pulmonic regurgitation. Mitral Valve There is no mitral valve stenosis. There is no mitral valve regurgitation. Tricuspid Valve There is trace tricuspid valve regurgitation. No pulmonary hypertension, estimated pulmonary arterial systolic pressure is 24 mmHg. Pericardium/Pleural There is no pericardial effusion. Inferior Vena Cava Normal inferior vena cava with >50% collapse upon inspiration consistent with normal right atrial pressure, 5 mmHg. Aorta The aortic root size at the sinus of Valsalva is normal. Left Ventricular Outflow Tract Name Value Normal LVOT 2D LVOT Diameter 2.5 cm LVOT Doppler LVOT Peak Velocity 128 cm/s LVOT Peak Gradient 7 mmHg LVOT Mean Gradient 4 mmHg LVOT VTI 25 cm LVOT VTI/AV VTI Ratio 0.6 LVOT Stroke Volume 119 ml LVOT CO 26.1 l/min LVOT CI 11.6 l/min/m2 Pulmonic Valve Name Value Normal PV Doppler PV Peak Velocity 131 cm/s PV Peak Gradient 7 mmHg Mitral Valve Name Value Normal MV Diastolic Function MV E Peak Velocity 77 cm/s MV A Peak Velocity 46 cm/s MV E/A 1.7 MV Decel Time (PW) 347 ms MV Annular TDI MV E/e' (Septal) 5.5 MV E/e' (Lateral) 3.7 MV E/e' (Average) 4.6 Tricuspid Valve Name Value Normal TV Regurgitation Doppler TR Peak Velocity 216 cm/s TR Peak Gradient 12 mmHg Estimated PAP/RSVP RA Pressure 5 mmHg <=5 PA Systolic Pressure 24 mmHg <36 RV Systolic Pressure 24 mmHg <36 TV Annular TDI TV Lateral Magalie s' Velocity 20.2 cm/s >=9.5 Aorta Name Value Normal Ascending Aorta Ao Root Diameter (MM) 3.4 cm Ao Root Diam Index (MM) 1.5 cm/m2 Aortic Valve Name Value Normal AV Doppler AV Peak Velocity 185 cm/s AV Peak Gradient 14 mmHg AV Mean Gradient 8 mmHg AV VTI 39 cm AV Area (Cont Eq VTI) 3.1 cm2 >=3.0 AV Area (Cont Eq Deangelo) 3.3 cm2 AV DI (Deangelo) 0.69 AV Regurgitation 2D LVOT Area 4.7 cm2 Ventricles Name Value Normal LV Dimensions 2D/MM IVS Diastolic Thickness (2D) 1.1 cm 0.6-1.0 LVID Diastole (2D) 5.7 cm 4.2-5.8 LVIW Diastolic Thickness (2D) 1.1 cm 0.6-1.0 LVID Systole (2D) 3.3 cm 2.5-4.0 LVOT Diameter 2.5 cm LV Mass (2D Cubed) 243.53 g 88.00-224.00 LV Mass Index (2D Cubed) 108 g/m2 49-115 Relative Wall Thickness (2D) 0.37 <=0.42 LV Fractional Shortening/Ejection Fraction 2D/MM LV Fractional Shortening (2D) 41 % 25-43 LV EF (2D Teichholz) 71 % LV Diastolic Volume (4C MOD) 165 ml LV EF (4C MOD) 75 % LV Diastolic Volume (2C MOD) 179 ml LV EF (2C MOD) 72 % LV Diastolic Volume (BP MOD) 172 ml 62-150 LV Diastolic Volume Index (BP MOD) 76 ml/m2 34-74 LV Systolic Volume (BP MOD) 46 ml 21-61 LV Systolic Volume Index (BP MOD) 20 ml/m2 11-31 LV EF (BP MOD) 73 % 52-72 LV Diastolic Length (4C) 9.3 cm LV Systolic Length (4C) 7.4 cm LV Stroke Volume (4C MOD) 123 ml RV Dimensions 2D/MM RVID Diastole (2D) 4.4 cm 2.1-3.5 Atria Name Value Normal LA Dimensions LA Dimension (MM) 3.6 cm 3.0-4.0 LA Volume (4C A-L) 55 ml LA Volume (BP A-L) 54 ml RA Dimensions RA Systolic Major Mcloud Length (4C) 4.4 cm 2.1-2.7 RA Area (4C) 14.2 cm2 <=18.0 Report Signatures
== END 2024-12-02 14:39 | disposition home or self-care (01) ==
PROVIDERS: PCP Internal Medicine; Visit Provider Internal Medicine
DX: I51.7 Cardiomegaly (principal); I45.10 Unspecified right bundle-branch block
CPT/HCPCS: 93306